=== PATIENT | male | born 1965 | race Caucasian/White ===

== ENCOUNTER 2021-03-06 10:15 | Emergency (ER) | payer OTHER ==
[2021-03-06 10:56] VITALS: BMI 34.2
[2021-03-06] MEDS ORDERED: BAMLANIVIMAB 700 MG, ETESEVIMAB 1,400 MG in SODIUM CHLORIDE 100 ML IVPB ONE (11:53)
[2021-03-06] MEDS ORDERED: DEXAMETHASONE LIQUID 0.5 MG/5 ML PO ONE (14:06)
[2021-03-06 14:42] VITALS: BP 116/74; PULSE 76; TEMP 98.8
== END 2021-03-06 14:41 | disposition home or self-care (01) ==
LOC: JCOVINFU 10:15
DX: U07.1 COVID-19 (principal)
CPT/HCPCS: 99284-25; Q0245